=== PATIENT | male | born 1955 | race American Indian/Alaskan Native ===

== ENCOUNTER 2017-11-08 08:12 | Day surgery (SDC) | payer MEDICARE ==
[~2017-11-08 08:12] MED LIST: Lactated Ringer's 500 ML IV SCH; Propofol 10 mg/ml Inj (20 ML) ONE
[2017-11-08 08:41] VITALS: BMI 54.4
[2017-11-08] MEDS ORDERED: Lactated Ringer's 1,000 ML IV ONE (09:15)
[2017-11-08] MEDS ORDERED: Propofol 10 mg/ml Inj (20 ML) ONE (09:15)
[2017-11-08] MEDS ORDERED: Albuterol HFA 90 mcg/actuation (8 g) ONE (09:15)
--- NOTE | 2017-11-08 09:19 | CP.SDSHP ---
Same Day Surgery H & P - History Proposed Procedure: EGD Pre-Op Diagnosis: Dyspepsia, nausea, heartburn - Previous Medical/Surgical History Cardiac: Hypertension Pulmonary: Asthma, Other Endocrine/Metabolic: Diabetes Comments: Sleep apnea Previous Surgical History: None - Allergies Allergies: Allergies No Known Allergies Allergy (Verified 11/08/17 08:41) - Current Medications Current Medications: See reconciliation sheet - Physical Exam General Appearance: WD WN male in NAD Vital Signs: Vital Signs 11/08/17 08:30 Temperature 97.6 F Pulse Rate 83 Respiratory 20 Rate Blood Pressure 151/84 H O2 Sat by Pulse 97 Oximetry Mental Status: Alert & Oriented x3 Neuro: WNL Heart: WNL Lungs: WNL GI: WNL - {Optional Preform as Required} Abdomen: WNL - Impression Impression: Dyspepsia, nausea, heartburn Pt. Evaluated Today:Candidate for Anesthesia & Procedure: Yes - Date & Time Date: 11/08/17 Time: 09:19 Short Stay Discharge - Short Stay Discharge Admitting Diagnosis/Reason for Visit: DYSPEPSIA, NAUSEA, HEARTBURN Disposition: HOME/ ROUTINE
[2017-11-08] MEDS ORDERED: Lactated Ringer's 500 ML IV ONE (09:45)
[2017-11-08 09:52] VITALS: TEMP 98
[2017-11-08 10:36] VITALS: BP 144/59; PULSE 78; RESP 20; O2SAT 97
== END 2017-11-08 11:00 | disposition home or self-care (01) ==
LOC: C.ENDO 08:12
PROVIDERS: ATTEND Internal Medicine Gastroenterology
DX: K25.9 Gastric ulcer, unspecified as acute or chronic, without hemorrhage or perforation (principal); I10 Essential (primary) hypertension; J45.909 Unspecified asthma, uncomplicated; E11.9 Type 2 diabetes mellitus without complications; K44.9 Diaphragmatic hernia without obstruction or gangrene; K59.8 Other specified functional intestinal disorders; K29.50 Unspecified chronic gastritis without bleeding; B96.81 Helicobacter pylori [H. pylori] as the cause of diseases classified elsewhere; E78.5 Hyperlipidemia, unspecified; G47.33 Obstructive sleep apnea (adult) (pediatric); Z79.84 Long term (current) use of oral hypoglycemic drugs; Z79.82 Long term (current) use of aspirin; K21.9 Gastro-esophageal reflux disease without esophagitis
CPT/HCPCS: 43239; 82948; 88305; 88312; 88313; 88342; J2001; J2704; J7120